=== PATIENT | female | born 1995 | race Caucasian/White ===

== ENCOUNTER 2020-03-25 13:13 | Emergency (ER) | payer OTHER, SELFPAY ==
[2020-03-25 13:30] VITALS: BP 123/67; PULSE 91; RESP 20; TEMP 36.8; O2SAT 99
--- NOTE | 2020-03-25 14:42 | PC.NURSE ---
NO URINE CULTURE PER PROVIDER.
--- NOTE | 2020-03-25 14:44 | ED.ABDPAIN ---
HPI - Abdominal Pain General Chief Complaint: Abdominal Pain Stated Complaint: lower abdo pain Time Seen by Provider: 03/25/20 14:40 Source: patient and RN notes reviewed Mode of arrival: ambulatory Limitations: no limitations History of Present Illness HPI narrative: 24 year old female who presents to [facility] care with complaints of RLQ abdominal pain since with pain stated to be constant yesterday. Patient states that she attributed her symptoms to premenstrual cramping but rated pain as sharp 6/10.Patient reports she did start her menstrual cycle today. Patient states that she is concerned for ectopic and wants test. Patient denies any fevers, chills or sweats, denies any diarrhea stools, no nausea or any vomiting. Patient does have some tenderness to right lateral lower quadrant superior to McBurney point region which is non tender to palpation with no rebound noted. Patient states that she has taken Ibuprofen which has helped her discomfort. MD elicited complaint: abdominal pain Onset (ago): day(s) (day 3) Severity: moderate Pain scale (0-10): 6 Quality: sharp Radiation: RLQ Relieving factors: medication Treatments prior to arrival: NSAIDs Related Data Home Medications Medication Instructions Recorded Confirmed albuterol sulfate [ProAir HFA] 2 puff INHALATION QID PRN 03/25/20 03/25/20 bupropion HCl 300 mg PO DAILY 03/25/20 03/25/20 buspirone 10 mg PO DAILY 03/25/20 03/25/20 Allergies Allergy/AdvReac Type Severity Reaction Status Date / Time No Known Allergies Allergy Verified 03/25/20 13:54 Review of Systems Review of Systems: All systems reviewed & are unremarkable except as noted in HPI and below Constitutional: Constitutional: Reports as per HPI and Reports no additional constitutional complaints Eyes: Eyes: Reports as per HPI and Reports no additional eye complaints ENT: Reports system reviewed and no additional complaints, except as documented, Reports as per HPI and Reports Normal hearing present Cardiovascular: Cardiovascular: Reports as per HPI and Reports no additional cardiovascular complaints Respiratory: Respiratory: Reports as per HPI and Reports no additional respiratory complaints Gastrointestinal: Gastrointestinal: Reports as per HPI, Reports no additional gastrointestinal complaints and Reports abdominal pain Comments: report pain to right lower quadrant of abdomen which improved with use of Ibuprofen, no nausea vomiting or diarrhea. afebrile Genitourinary: Genitourinary: Reports no additional female genitourinary complaints and Reports as per HPI Comments: started menses today Musculoskeletal: Musculoskeletal: Reports no additional musculoskeletal complaints Integumentary/Breasts: Skin/Breast: Reports system reviewed and no additional complaints, except as docu and Reports as per HPI Neurologic: Reports system reviewed and no additional complaints, except as documented, Reports as per HPI and Reports Normal hearing present Psychiatric: Psychiatric: Reports no additional psychiatric complaints, Reports as per HPI, Reports anxiety and Reports depression Endocrine: Endocrine: Reports no additional endocrine complaints and Reports as per HPI PMFSH Past Medical History Medical History (Updated 03/26/20 @ 21:07 by Juli Raygoza NP) Anxiety and depression Asthma Surgical History Surgical History (Updated 03/26/20 @ 21:11 by Juli Raygoza NP) History of tonsillectomy Social History Social History (Updated 03/26/20 @ 21:12 by Juli Raygoza NP) Smoking status: Never smoker Alcohol intake: unknown Substance use: never Living arrangements: with family Gender identity (if verbalized by the patient): Female Comments At time of signature agree with nursing documentation of past medical surgical and social history. There is no relevant family history pertinent to presenting complaint Exam Narrative: Exam Narrative: GENERAL: Well-a
== END 2020-03-25 14:58 | disposition home or self-care (01) ==
PROVIDERS: Emergency Provider Registered Nurse; PCP Internal Medicine
DX: R10.31 Right lower quadrant pain (principal); J45.909 Unspecified asthma, uncomplicated; F41.9 Anxiety disorder, unspecified; F32.9 Major depressive disorder, single episode, unspecified
CPT/HCPCS: 81003; 81025; 99213; G0463

== ENCOUNTER 2020-09-12 17:35 | Emergency (ER) | payer OTHER, SELFPAY ==
--- NOTE | ~2020-09-12 | XR_ITS ---
XR foot RT min 3V DATE: 09/12/2020 17:54 INDICATION: Kicked door. Pain at first and second toes. TECHNIQUE: 4 views COMPARISON: None FINDINGS: No fracture or dislocation, periosteal reaction or bone destruction, erosive change or sign ificant joint space narrowing. IMPRESSION: Negative Reviewed, dictated and finalized at location A. IMPRESSION: Negative
[2020-09-12 17:45] VITALS: BP 120/74; PULSE 85; RESP 16; TEMP 36.7; O2SAT 99
--- NOTE | 2020-09-12 17:55 | ED.LOWEXIN ---
HPI - Extremity Injury (Lower) General Chief Complaint: Extremity Injury, Lower Stated Complaint: injured toes Time Seen by Provider: 09/12/20 17:55 Source: patient, RN notes reviewed and old records reviewed Mode of arrival: ambulatory Limitations: no limitations History of Present Illness HPI Narrative: 24 year old female who presents to [facility] care with complaints of injury to her right great toe and 2nd toe last night when she accidently kicked the closet door. She states that she lost her balance and her first 2 toes of her right foot hit directly onto the closet door with pain and swelling present to those toes. Patient denies any tingling or numbness to her right foot or toes, has swelling to the first toe area proximal region with no bruising noted to either 1st or 2nd toe of right foot. Patient states that she has applied ice to her foot and also did Epsom salt water soak and has taken Ibuprofen complaint: foot injury (1st 2nd toe right foot) Onset (ago): day(s) (1) Injury: Right: toes (1st and 2nd toes) Related Data Home Medications Medication Instructions Recorded Confirmed albuterol sulfate [ProAir HFA] 2 puff INHALATION QID PRN 03/25/20 03/25/20 bupropion HCl 300 mg PO DAILY 03/25/20 03/25/20 Allergies Allergy/AdvReac Type Severity Reaction Status Date / Time No Known Allergies Allergy Verified 08/31/20 15:53 Review of Systems Review of Systems: Narrative: CONSTITUTIONAL: Denies fever, chills, or sweats. EYES: Denies visual changes, redness, or discharge. ENT: Denies rhinorrhea, congestion, sore throat, or otalgia. CARDIOVASCULAR: Denies chest pain, palpitations, or edema. RESPIRATORY: Denies cough or dyspnea. GASTROINTESTINAL: Denies abdominal pain, nausea, vomiting, or diarrhea. GENITOURINARY: Denies dysuria or hematuria. SKIN: Denies rash or itching. MUSCULOSKELETAL: Denies back pain,positive for pain to proximal region of 1st toe right foot and 2nd toe pain, or myalgia. NEUROLOGIC: Denies headache, numbness, or weakness. PSYCHIATRIC: Positive history of anxiety or depression. All systems reviewed & are unremarkable except as noted in HPI and below PMFSH Past Medical History Medical History Anxiety and depression Asthma Surgical History Surgical History History of tonsillectomy Family History Family History Other Depression Diabetes mellitus Family history of elevated blood lipids Hypertension Social History Social History Smoking status: Never smoker Second hand tobacco smoke exposure: No Alcohol intake: unknown Substance use: never Gender identity (if verbalized by the patient): Female Comments At time of signature, agree with nursing past medical, surgical, social and family history. There is no relevant family history pertinent to the presenting complaint Exam Narrative: Exam Narrative: GENERAL: Well-appearing, well-nourished, and in no acute distress. HEAD: Normocephalic, atraumatic. EYES: PERRLA and EOMI. ENT: Nares clear, no rhinorrhea or epistaxis. Mucous membranes moist. NECK: Supple. no lymphadenopathy CHEST: Clear to auscultation. No respiratory distress.SAO2 99% on room air. HEART: Regular rate and rhythm. No murmur heard. Normal peripheral pulses. ABDOMEN: Soft, nontender, nondistended, normal active bowel sounds. EXTREMITIES: Normal range of motion. edema to right great toe and 2nd toe with no tingling or numbness to right great toe or foot, Patient has pink warm foot with strong pedal pulse and posterior tibial pulses. nail beds kriss briskly. SKIN: Warm, dry, no rash. NEURO: No focal deficits. Alert and oriented x3. Course Vital Signs Vital signs: Vital Signs Temperature 36.7 C 09/12/20 17:45 Pulse Rate 85 09/12/20 17:45 Res
== END 2020-09-12 18:30 | disposition home or self-care (01) ==
PROVIDERS: Emergency Provider Registered Nurse; PCP Internal Medicine
DX: S90.211A Contusion of right great toe with damage to nail, initial encounter (principal); S90.121A Contusion of right lesser toe(s) without damage to nail, initial encounter; W22.8XXA Striking against or struck by other objects, initial encounter; J45.909 Unspecified asthma, uncomplicated; F41.9 Anxiety disorder, unspecified; F32.9 Major depressive disorder, single episode, unspecified
CPT/HCPCS: 73630; 99213; G0463